=== PATIENT | male | born 1955 | race African-American/Black ===

== ENCOUNTER 2018-04-05 10:57 | Emergency (ER) | payer MEDICARE, OTHER ==
[~2018-04-05] VITALS: Ht 182.9 cm; Wt 120.9 kg
[2018-04-05 11:44] VITALS: BP 149/86
[2018-04-05] MEDS ORDERED: METF500T6 PO (11:49)
[2018-04-05] MEDS ORDERED: MULT-1203 PEG (11:49)
[2018-04-05] MEDS ORDERED: ASPI-891 PO (11:49)
[2018-04-05] MEDS ORDERED: LOSA50TA37 PO (11:49)
[2018-04-05] MEDS ORDERED: GLIP5 PO (11:49)
[2018-04-05] MEDS ORDERED: ATOR40TA28 PO (11:49)
[2018-04-05] MEDS ORDERED: TRAZ-220 PO (11:49)
[2018-04-05] MEDS ORDERED: QUET25TA PO (11:49)
[2018-04-05 11:54] LABS: GLUCOSE,POINT OF CARE 135 MG/DL (70-110)
== END 2018-04-05 16:23 | disposition home or self-care (01) ==
LOC: EMS 10:59
DX: S81.801A Unspecified open wound, right lower leg, initial encounter (principal); S81.802A Unspecified open wound, left lower leg, initial encounter; J44.9 Chronic obstructive pulmonary disease, unspecified; E11.9 Type 2 diabetes mellitus without complications; E78.00 Pure hypercholesterolemia, unspecified; I10 Essential (primary) hypertension; F17.210 Nicotine dependence, cigarettes, uncomplicated; G89.29 Other chronic pain; Z86.73 Personal history of transient ischemic attack (TIA), and cerebral infarction without residual deficits; X58.XXXA Exposure to other specified factors, initial encounter; Y93.89 Activity, other specified; Y92.89 Other specified places as the place of occurrence of the external cause; Y99.8 Other external cause status
CPT/HCPCS: 99283

== ENCOUNTER 2018-10-10 16:45 | Inpatient (IN) | payer MEDICARE, OTHER ==
[~2018-10-10] VITALS: Ht 182.9 cm; Wt 114.5 kg
[~2018-10-10 16:45] MED LIST: ASPI-891 PO; ATOR40TA28 PO; GLIP5 PO; LOSA50TA64 PO; METF-960 PO; MULT-1203 PEG; QUET25TA PO; TRAZ-220 PO
[2018-10-10] MEDS ORDERED: METO25 PO (18:42)
[2018-10-10] MEDS ORDERED: CYAN100 PO (18:42)
[2018-10-10] MEDS ORDERED: RIVA20TA PO (18:42)
[2018-10-10] MEDS ORDERED: FERR-89 PO (18:42)
[2018-10-10] MEDS ORDERED: FURO40 PO (18:42)
[2018-10-10] MEDS ORDERED: LOSA50TA64 PO (18:42)
[2018-10-10] MEDS ORDERED: KDUR10 PO (18:42)
[2018-10-10] MEDS ORDERED: METF-960 PO (18:42)
[2018-10-10] MEDS ORDERED: FURO40I IM (18:42)
[2018-10-10] MEDS ORDERED: PIPERACILLIN SODIUM/TAZOBACTAM 4.5 GM in DEXTROSE 5%-WATER 100 ML IV ONE (18:45)
[2018-10-10] MEDS ORDERED: SODIUM CHLORIDE 0.9% 1,000 ML IV ONE (18:45)
[2018-10-10] MEDS ORDERED: VANCOMYCIN HCL 1 GM/D5% WATER 200 ML IV ONE ×2 (20:00→23:00)
[2018-10-10] MEDS ORDERED: 0.9% SODIUM CHLORIDE 10 ML SYRINGE IVP PRN (20:00)
[2018-10-10] MEDS ORDERED: ONDANSETRON HCL 4 MG/2 ML VIAL IVP PRN ×2 (20:00→22:15)
[2018-10-10] MEDS ORDERED: ACETAMINOPHEN 325 MG TABLET PO PRN ×2 (20:00→22:15)
[2018-10-10 20:30] LABS: BASOPHILS % (AUTO) 0.7 % (0.0-2.0); EOSINOPHILS % (AUTO) 2.4 % (1.0-6.0); HEMATOCRIT 27.7 % (41-53); HEMOGLOBIN 9.3 g/dL (13.5-17.5); LYMPHOCYTES # (AUTO) 1.7 K/uL (1.0-4.8); LYMPHOCYTES % (AUTO) 23.6 % (22.0-44.0); MEAN CORPUSCULAR HEMOGLOBIN 30.1 pg (26.0-34.0); MEAN CORPUSCULAR HGB CONC 33.7 G/dL (31.0-37.0); MEAN CORPUSCULAR VOLUME 89 fL (80-100); MONOCYTES # (AUTO) 0.6 K/uL (0.1-1.0); MONOCYTES % (AUTO) 7.7 % (2.0-9.0); NEUTROPHILS # (AUTO) 4.9 K/uL (1.8-7.7); NEUTROPHILS % (AUTO) 65.6 % (40.0-70.0); PLATELET COUNT (AUTO) 309 K/uL (150-450); RED CELL DISTRIBUTION WIDTH 16.1 % (11.5-14.5)
[2018-10-10 20:47] LABS: LACTIC ACID 1.2 mmol/L (0.4-2.0)
[2018-10-10 20:51] LABS: CALCIUM, TOTAL 9.5 mg/dL (8.8-10.5); CREATININE 1.75 mg/dL (0.60-1.30); POTASSIUM 4.5 mmol/L (3.5-5.1)
[2018-10-10 20:56] LABS: ALBUMIN 3.3 g/dL (3.4-5.0); BILIRUBIN,TOTAL 0.3 mg/dL (0.1-1.0); TOTAL PROTEIN, SERUM 8.4 g/dL (6.4-8.2)
[2018-10-10 22:14] VITALS: BP 145/82
[2018-10-10] MEDS ORDERED: MAGNESIUM HYDROXIDE SUSPENSION 30 ML UDCUP PO PRN (22:15)
[2018-10-10] MEDS ORDERED: HYDROCODONE/ACETAMINOPHEN 5-325 MG TABLET PO PRN (22:15)
[2018-10-10] MEDS ORDERED: ZOLPIDEM TARTRATE 5 MG TABLET PO PRN (22:15)
[2018-10-10] MEDS ORDERED: BISACODYL 10 MG RECTAL RECTAL SUPPOSITORY PR PRN (22:15)
[2018-10-10] MEDS ORDERED: MORPHINE SULFATE 4 MG/ML SYRINGE IVP PRN (22:15)
[2018-10-10] MEDS ORDERED: SODIUM CHLORIDE 0.9% 500 ML IV ONE (23:19)
[2018-10-11] VITALS (7 sets, daily range): BP systolic 117–138; BP diastolic 66–79
[2018-10-11 06:32] LABS: BASOPHILS % (AUTO) 0.6 % (0.0-2.0); EOSINOPHILS % (AUTO) 1.1 % (1.0-6.0); HEMATOCRIT 26.1 % (41-53); HEMOGLOBIN 8.9 g/dL (13.5-17.5); LYMPHOCYTES # (AUTO) 1.3 K/uL (1.0-4.8); MEAN CORPUSCULAR HEMOGLOBIN 30.3 pg (26.0-34.0); MEAN CORPUSCULAR HGB CONC 34.1 G/dL (31.0-37.0); MEAN CORPUSCULAR VOLUME 89 fL (80-100); MONOCYTES # (AUTO) 0.7 K/uL (0.1-1.0); MONOCYTES % (AUTO) 7.3 % (2.0-9.0); NEUTROPHILS # (AUTO) 7.3 K/uL (1.8-7.7); PLATELET COUNT (AUTO) 282 K/uL (150-450); RED BLOOD CELL COUNT(AUTO) 2.94 MIL/uL (4.50-5.90); RED CELL DISTRIBUTION WIDTH 15.7 % (11.5-14.5)
[2018-10-11 06:56] LABS: BILIRUBIN,TOTAL 0.4 mg/dL (0.1-1.0); CALCIUM, TOTAL 8.8 mg/dL (8.8-10.5); CREATININE 1.91 mg/dL (0.60-1.30); TOTAL PROTEIN, SERUM 7.2 g/dL (6.4-8.2)
[2018-10-11] MEDS ORDERED: VANCOMYCIN HCL 1.5 GM in DEXTROSE 5%-WATER 250 ML IV SCH ×4 (08:00)
[2018-10-11] MEDS ORDERED: MetFORMIN HCL 500 MG TABLET PO SCH (08:00)
[2018-10-11] MEDS ORDERED: FUROSEMIDE 40 MG TABLET PO SCH (09:00)
[2018-10-11] MEDS ORDERED: LOSARTAN POTASSIUM 50 MG TABLET PO SCH (09:00)
[2018-10-11] MEDS: DOCUSATE SODIUM 100 MG CAPSULE PO SCH ×2 (09:00→20:46)
[2018-10-11] MEDS: PANTOPRAZOLE SODIUM 40 MG DR TABLET PO SCH (09:23)
[2018-10-11] MEDS: CYANOCOBALAMIN 100 MCG TABLET PO SCH (09:23)
[2018-10-11] MEDS: METOPROLOL TARTRATE 25 MG TABLET PO SCH (09:23)
[2018-10-11] MEDS: FERROUS SULFATE 325 MG EC TABLET PO SCH (09:23)
[2018-10-11] MEDS ORDERED: INSULIN LISPRO 100 UNITS/ML SQ PRN (13:45)
[2018-10-11] MEDS ORDERED: SODIUM CHLORIDE 0.9% 500 ML IV ONE (13:45)
[2018-10-11] MEDS ORDERED: *CLINICAL-LEVOFLOXACIN IVPB DOSING CLINICAL ONE (13:45)
[2018-10-11] MEDS ORDERED: DEXTROSE 50%-WATER 25 GM/50 ML SYRINGE IVP PRN (13:45)
[2018-10-11] MEDS ORDERED: LEVOFLOXACIN 750 MG/D5% WATER 150 ML IV SCH (15:00)
[2018-10-11] MEDS: RIVAROXABAN 20 MG TABLET PO SCH (17:50)
[2018-10-11] MEDS: ATORVASTATIN CALCIUM 40 MG TABLET PO SCH (20:35)
[2018-10-11] MEDS: QUEtiapine FUMARATE 25 MG TABLET PO SCH (20:35)
[2018-10-12 05:31] VITALS: BP 121/68
[2018-10-12 06:26] LABS: CALCIUM, TOTAL 8.8 mg/dL (8.8-10.5); CREATININE 2.71 mg/dL (0.60-1.30); POTASSIUM 3.7 mmol/L (3.5-5.1)
[2018-10-12 07:34] VITALS: BP 124/58
[2018-10-12] MEDS: METOPROLOL TARTRATE 25 MG TABLET PO SCH (08:51)
[2018-10-12] MEDS: PANTOPRAZOLE SODIUM 40 MG DR TABLET PO SCH (08:51)
[2018-10-12] MEDS: DOCUSATE SODIUM 100 MG CAPSULE PO SCH ×2 (08:51→19:51)
[2018-10-12] MEDS: FERROUS SULFATE 325 MG EC TABLET PO SCH (08:51)
[2018-10-12] MEDS: CYANOCOBALAMIN 100 MCG TABLET PO SCH (08:51)
[2018-10-12 11:31] VITALS: BP 110/59
[2018-10-12] MEDS ORDERED: SODIUM CHLORIDE 0.9% 500 ML IV ONE (12:15)
[2018-10-12 16:16] VITALS: BP 127/61
[2018-10-12] MEDS: RIVAROXABAN 20 MG TABLET PO SCH (17:22)
[2018-10-12 19:05] LABS: GLUCOMETER DEV NAME(LOC) 4E.; GLUCOSE,POINT OF CARE 156 MG/DL (70-110)
[2018-10-12 19:05] LABS: GLUCOMETER DEV NAME(LOC) 4E.; GLUCOSE,POINT OF CARE 107 MG/DL (70-110)
[2018-10-12 19:05] LABS: GLUCOMETER DEV NAME(LOC) 4E.; GLUCOSE,POINT OF CARE 125 MG/DL (70-110)
[2018-10-12 19:05] LABS: GLUCOMETER DEV NAME(LOC) 4E.; GLUCOSE,POINT OF CARE 108 MG/DL (70-110)
[2018-10-12 19:29] LABS: GLUCOMETER DEV NAME(LOC) 6N.1; GLUCOSE,POINT OF CARE 142 MG/DL (70-110)
[2018-10-12 19:44] VITALS: BP 121/59
[2018-10-12] MEDS: QUEtiapine FUMARATE 25 MG TABLET PO SCH (19:51)
[2018-10-12] MEDS: ATORVASTATIN CALCIUM 40 MG TABLET PO SCH (19:51)
[2018-10-12] MEDS: SODIUM CHLORIDE 0.45% 1,000 ML IV SCH (19:55)
[2018-10-12 20:59] LABS: GLUCOMETER DEV NAME(LOC) 4E.; GLUCOSE,POINT OF CARE 140 MG/DL (70-110)
[2018-10-12 23:54] VITALS: BP 115/63
[2018-10-13 05:05] VITALS: BP 120/69
[2018-10-13 05:44] LABS: GLUCOMETER DEV NAME(LOC) 4E.; GLUCOSE,POINT OF CARE 114 MG/DL (70-110)
[2018-10-13 08:11] VITALS: BP 129/65
[2018-10-13 08:18] LABS: BASOPHILS % (AUTO) 1.1 % (0.0-2.0); EOSINOPHILS % (AUTO) 2.1 % (1.0-6.0); HEMATOCRIT 25.5 % (41-53); HEMOGLOBIN 8.7 g/dL (13.5-17.5); LYMPHOCYTES # (AUTO) 1.4 K/uL (1.0-4.8); LYMPHOCYTES % (AUTO) 22.5 % (22.0-44.0); MEAN CORPUSCULAR HEMOGLOBIN 30.7 pg (26.0-34.0); MEAN CORPUSCULAR VOLUME 90 fL (80-100); MONOCYTES # (AUTO) 0.5 K/uL (0.1-1.0); MONOCYTES % (AUTO) 8.7 % (2.0-9.0); NEUTROPHILS % (AUTO) 65.6 % (40.0-70.0); PLATELET COUNT (AUTO) 256 K/uL (150-450); RED BLOOD CELL COUNT(AUTO) 2.83 MIL/uL (4.50-5.90); RED CELL DISTRIBUTION WIDTH 15.7 % (11.5-14.5)
[2018-10-13] MEDS: METOPROLOL TARTRATE 25 MG TABLET PO SCH (08:27)
[2018-10-13] MEDS: CYANOCOBALAMIN 100 MCG TABLET PO SCH (08:27)
[2018-10-13] MEDS: DOCUSATE SODIUM 100 MG CAPSULE PO SCH ×2 (08:27→20:49)
[2018-10-13] MEDS: FERROUS SULFATE 325 MG EC TABLET PO SCH (08:27)
[2018-10-13] MEDS: PANTOPRAZOLE SODIUM 40 MG DR TABLET PO SCH (08:27)
[2018-10-13] MEDS: SODIUM CHLORIDE 0.45% 1,000 ML IV SCH (08:32)
[2018-10-13 08:35] LABS: CALCIUM, TOTAL 8.8 mg/dL (8.8-10.5); CREATININE 3.04 mg/dL (0.60-1.30); MAGNESIUM 1.4 mg/dL (1.80-2.40); PHOSPHORUS 3.9 mg/dL (2.5-4.9); POTASSIUM 3.8 mmol/L (3.5-5.1)
[2018-10-13] MEDS ORDERED: EPOETIN ALFA 10,000 UNITS/ML VIAL SQ SCH (09:00)
[2018-10-13 09:09] LABS: % IRON SATURATION 8.5 % (30-44)
[2018-10-13] MEDS ORDERED: LEVOFLOXACIN 750 MG/D5% WATER 150 ML IV SCH (10:00)
[2018-10-13] MEDS ORDERED: MAGNESIUM SULFATE 1 GM in DEXTROSE 5%-WATER 50 ML IV ONE (10:45)
[2018-10-13 11:28] VITALS: BP 121/68
[2018-10-13 13:24] LABS: GLUCOMETER DEV NAME(LOC) 4E.; GLUCOSE,POINT OF CARE 113 MG/DL (70-110)
[2018-10-13 15:34] LABS: APPEARANCE,URINE CLEAR (CLEAR); BILIRUBIN,URINE NEGATIVE (NEGATIVE); GLUCOSE, URINE (UA) NEGATIVE (NEGATIVE); KETONES,URINE NEGATIVE (NEGATIVE); LEUKOCYTE ESTERASE ,URINE TRACE (NEGATIVE); NITRATE,URINE NEGATIVE (NEGATIVE); OCCULT BLOOD,URINE LARGE (NEGATIVE); PROTEIN,URINE NEGATIVE (NEGATIVE); UROBILINOGEN,URINE 0.2 mg/dL (<=1.0)
[2018-10-13 15:38] VITALS: BP 128/61
[2018-10-13 15:57] LABS: BACTERIA,URINE Few /HPF (None Seen); SQUAMOUS EPITHELIAL CELL,UR Rare /LPF (None Seen)
[2018-10-13 16:04] LABS: SODIUM,URINE RANDOM 77 mmol/l (20-110)
[2018-10-13] MEDS: RIVAROXABAN 20 MG TABLET PO SCH (18:17)
[2018-10-13 19:39] LABS: GLUCOMETER DEV NAME(LOC) 6N.1; GLUCOSE,POINT OF CARE 86 MG/DL (70-110)
[2018-10-13 19:42] VITALS: BP 133/66
[2018-10-13] MEDS: QUEtiapine FUMARATE 25 MG TABLET PO SCH (20:49)
[2018-10-13] MEDS: ATORVASTATIN CALCIUM 40 MG TABLET PO SCH (20:49)
[2018-10-13 20:52] LABS: CREATININE,URINE RANDOM 98.6 mg/dL (30.0-125.0); PROTEIN,URINE RANDOM 42 mg/dL (0-11.9)
[2018-10-13 20:59] LABS: GLUCOMETER DEV NAME(LOC) 6N.1; GLUCOSE,POINT OF CARE 125 MG/DL (70-110)
[2018-10-14 00:22] VITALS: BP 142/81
[2018-10-14 05:03] VITALS: BP 132/68
[2018-10-14 05:49] LABS: GLUCOMETER DEV NAME(LOC) 6N.2; GLUCOSE,POINT OF CARE 105 MG/DL (70-110)
[2018-10-14 06:59] LABS: BASOPHILS % (AUTO) 0.6 % (0.0-2.0); EOSINOPHILS % (AUTO) 2.7 % (1.0-6.0); HEMATOCRIT 25.3 % (41-53); HEMOGLOBIN 8.7 g/dL (13.5-17.5); LYMPHOCYTES # (AUTO) 1.2 K/uL (1.0-4.8); MEAN CORPUSCULAR HEMOGLOBIN 30.8 pg (26.0-34.0); MEAN CORPUSCULAR HGB CONC 34.3 G/dL (31.0-37.0); MEAN CORPUSCULAR VOLUME 90 fL (80-100); MONOCYTES # (AUTO) 0.4 K/uL (0.1-1.0); NEUTROPHILS % (AUTO) 62.7 % (40.0-70.0); PLATELET COUNT (AUTO) 255 K/uL (150-450); RED BLOOD CELL COUNT(AUTO) 2.81 MIL/uL (4.50-5.90); RED CELL DISTRIBUTION WIDTH 15.7 % (11.5-14.5)
[2018-10-14 07:17] LABS: HEMOGLOBIN A1C 7.2 % (4.5-6.2)
[2018-10-14 07:21] LABS: CREATININE 2.72 mg/dL (0.60-1.30); MAGNESIUM 1.4 mg/dL (1.80-2.40); PHOSPHORUS 4.7 mg/dL (2.5-4.9); POTASSIUM 3.8 mmol/L (3.5-5.1)
[2018-10-14 08:08] VITALS: BP 124/71
[2018-10-14] MEDS: CYANOCOBALAMIN 100 MCG TABLET PO SCH (08:17)
[2018-10-14] MEDS: FERROUS SULFATE 325 MG EC TABLET PO SCH (08:17)
[2018-10-14] MEDS: DOCUSATE SODIUM 100 MG CAPSULE PO SCH (08:17)
[2018-10-14] MEDS: METOPROLOL TARTRATE 25 MG TABLET PO SCH (08:17)
[2018-10-14] MEDS: PANTOPRAZOLE SODIUM 40 MG DR TABLET PO SCH (08:17)
[2018-10-14] MEDS ORDERED: MAGNESIUM SULFATE 1 GM in DEXTROSE 5%-WATER 50 ML IV ONE (09:30)
[2018-10-14 11:50] VITALS: BP 115/59
[2018-10-14 15:25] LABS: APPEARANCE,URINE CLOUDY (CLEAR); BILIRUBIN,URINE NEGATIVE (NEGATIVE); GLUCOSE, URINE (UA) NEGATIVE (NEGATIVE); KETONES,URINE NEGATIVE (NEGATIVE); LEUKOCYTE ESTERASE ,URINE NEGATIVE (NEGATIVE); NITRATE,URINE NEGATIVE (NEGATIVE); OCCULT BLOOD,URINE LARGE (NEGATIVE); PROTEIN,URINE TRACE (NEGATIVE); UROBILINOGEN,URINE 0.2 mg/dL (<=1.0)
[2018-10-14 16:10] VITALS: BP 128/61
[2018-10-14 16:23] LABS: RBC,URINE 26-50 /HPF (0-2)
[2018-10-14 16:24] LABS: BACTERIA,URINE Few /HPF (None Seen); SQUAMOUS EPITHELIAL CELL,UR Few /LPF (None Seen)
[2018-10-14 17:44] LABS: GLUCOMETER DEV NAME(LOC) 6N.1; GLUCOSE,POINT OF CARE 184 MG/DL (70-110)
[2018-10-14 17:49] LABS: GLUCOMETER DEV NAME(LOC) 6N.1; GLUCOSE,POINT OF CARE 93 MG/DL (70-110)
== END 2018-10-14 17:50 | DRG 602 ==
LOC: EMS 16:46 → 4E 20:00 → 6N 10-13 17:10
PROVIDERS: ADMIT Internal Medicine; ATTEND Internal Medicine
DX: L03.116 Cellulitis of left lower limb (principal); N17.0 Acute kidney failure with tubular necrosis; L03.115 Cellulitis of right lower limb; N18.9 Chronic kidney disease, unspecified; E78.5 Hyperlipidemia, unspecified; F32.9 Major depressive disorder, single episode, unspecified; J44.9 Chronic obstructive pulmonary disease, unspecified; E11.22 Type 2 diabetes mellitus with diabetic chronic kidney disease; E78.00 Pure hypercholesterolemia, unspecified; I87.8 Other specified disorders of veins; I12.9 Hypertensive chronic kidney disease with stage 1 through stage 4 chronic kidney disease, or unspecified chronic kidney disease; D50.9 Iron deficiency anemia, unspecified; E83.42 Hypomagnesemia; Z79.84 Long term (current) use of oral hypoglycemic drugs; Z85.038 Personal history of other malignant neoplasm of large intestine; Z86.73 Personal history of transient ischemic attack (TIA), and cerebral infarction without residual deficits; Z79.01 Long term (current) use of anticoagulants; Z79.899 Other long term (current) drug therapy
CPT/HCPCS: 36569; 76770; 82570; 83036; 83540; 83550; 83605; 83735; 84100; 84155; 84156; 84165; 84166; 84300; 86803; 87081; 87086; 89050; 96365; G0378; J0885; J1956; J2543; J3370; J3475; J7030; J7040; J7060